=== PATIENT | male | born 1970 | race Two or more races ===

== ENCOUNTER 2019-10-28 12:34 | Emergency (ER) | payer BC ==
[~2019-10-28] VITALS: Ht 162.6 cm; Wt 90.3 kg
[2019-10-28 14:00] VITALS: BP 127/73
== END 2019-10-28 14:38 | disposition home or self-care (01) ==
LOC: ER 12:34
DX: R50.9 Fever, unspecified (principal); E11.9 Type 2 diabetes mellitus without complications; R19.7 Diarrhea, unspecified; R06.02 Shortness of breath; Z20.828 Contact with and (suspected) exposure to other viral communicable diseases; Z90.89 Acquired absence of other organs
CPT/HCPCS: 71045; 87635